=== PATIENT | female | born 1985 | race Caucasian/White ===

== ENCOUNTER 2018-06-22 16:36 | Outpatient (CLI) | END 2018-06-22 20:00 | disposition home or self-care (01) ==

== ENCOUNTER 2018-06-26 18:36 | Outpatient (CLI) | END 2018-06-26 22:11 | disposition home or self-care (01) ==

== ENCOUNTER 2018-06-28 10:52 | Outpatient (CLI) | END 2018-06-28 13:06 | disposition home or self-care (01) ==

== ENCOUNTER 2018-07-03 22:00 | Inpatient (IN) | END 2018-07-07 17:35 | disposition home or self-care (01) | DRG 765 ==